=== PATIENT | male | born 1945 | race Caucasian/White ===

== ENCOUNTER 2020-11-17 15:13 | Emergency (ER) | payer OTHER ==
[~2020-11-17 15:13] MED LIST: ALLERGY EYE5 ML OP; BAYER CHEWABLE81 MG PO; CALCIUM 500 +1 EACH PO; DOXYCYCLINE HY100 M2 PO; FISH OIL 1,2001 EAC1 PO; FLOMAX 0.4 MG0.4 MG PO; IMDUR ER TAB 6060 MG PO; LORTAB 7.5-3251 EACH MT; MULTI COMPLETE1 EACH PO; OMEPRAZOLE20 M1 PO; PROSCAR5 MG PO; TENORMIN 25 MG25 MG PO; XARELTO20 MG PO; XELJANZ5 MG; ZETIA10 MG PO
== END 2020-11-17 20:29 | disposition home or self-care (01) ==
LOC: ER1 15:13
DX: M54.5 Low back pain (principal); Z88.5 Allergy status to narcotic agent; F17.220 Nicotine dependence, chewing tobacco, uncomplicated
CPT/HCPCS: 72131; 81001; 99284

== ENCOUNTER → 2021-05-26 | Outpatient (CLI) | payer OTHER ==
[2021-05-26 09:47] LABS: HEMOGLOBIN 14.6 gm/dl (14.0-17.5); RED BLOOD COUNT 4.54 M/UL (4.20-5.50); WHITE BLOOD COUNT 10.6 K/UL (4.5-11.0)
== END ==
LOC: LAB 08:17
PROVIDERS: Emergency Medicine
DX: K21.9 Gastro-esophageal reflux disease without esophagitis (principal); R10.11 Right upper quadrant pain; R10.13 Epigastric pain; R14.3 Flatulence; Z88.5 Allergy status to narcotic agent; Z88.8 Allergy status to other drugs, medicaments and biological substances
CPT/HCPCS: 36415; 74019; 80053; 83690; 85025

== ENCOUNTER → 2021-06-15 | Outpatient (CLI) | payer OTHER | LOC: RT 09:12 | DX: I25.10 Atherosclerotic heart disease of native coronary artery without angina pectoris (principal); I10 Essential (primary) hypertension; R94.31 Abnormal electrocardiogram [ECG] [EKG] | CPT/HCPCS: 93005 ==

== ENCOUNTER → 2021-07-14 | Outpatient (CLI) | payer OTHER | LOC: KOH-I 07-12 14:00 | DX: R10.816 Epigastric abdominal tenderness (principal); K85.90 Acute pancreatitis without necrosis or infection, unspecified | CPT/HCPCS: 74150 ==

== ENCOUNTER 2021-12-13 08:47 | Emergency (ER) | payer OTHER ==
[2021-12-13 09:44] LABS: HEMOGLOBIN 13.7 gm/dl (14.0-17.5); RED BLOOD COUNT 4.41 M/UL (4.20-5.50); WHITE BLOOD COUNT 4.5 K/UL (4.5-11.0)
[2021-12-13 10:27] LABS: BUN/CREATININE RATIO 24 (0-10)
[2021-12-13] MEDS ORDERED: IBUPROFEN600 MG PO (12:06)
[2021-12-13] MEDS ORDERED: CYCLOBENZAPRINE10 MG PO (12:06)
== END 2021-12-13 12:45 | disposition home or self-care (01) ==
LOC: ER1 08:47
PROVIDERS: Emergency Medicine
DX: R10.9 Unspecified abdominal pain (principal); I10 Essential (primary) hypertension; Z95.1 Presence of aortocoronary bypass graft; Z88.5 Allergy status to narcotic agent
CPT/HCPCS: 71045; 80053; 81001; 82550; 82553; 83690; 84484; 85025; 96374; 96375; 99284; J1170; J2405; Q9967